=== PATIENT | female | born 1975 | race Caucasian/White ===

== ENCOUNTER → 2017-05-04 | Emergency (ER) | payer OTHER ==
[~2017-05-04] VITALS: Ht 170.2 cm; Wt 100.7 kg
[~2017-05-04] MED LIST: ALBUTEROL S5 MG/1 ML IH; BENADRYL25 MG PO; GILTUSS TR TAB1 EACH PO; MEDROL4 MG PO; MEDROLPACK PO; ORPH100T PO; PEPCID40 MG PO
== END | disposition home or self-care (01) ==
LOC: ER 08:58
DX: B34.9 Viral infection, unspecified (principal); J45.998 Other asthma

== ENCOUNTER 2018-04-14 12:15 | Emergency (ER) | payer OTHER ==
[~2018-04-14] VITALS: Ht 170.2 cm; Wt 102.1 kg
== END 2018-04-14 13:46 | disposition home or self-care (01) ==
LOC: ER 12:15
DX: M25.521 Pain in right elbow (principal)

== ENCOUNTER 2019-09-10 11:26 | Outpatient (CLI) | payer OTHER | END 2019-09-10 11:28 | disposition home or self-care (01) | LOC: SONOGRAMA 11:26 | PROVIDERS: ATTEND Pathology Anatomic Pathology & Clinical Pathology | DX: E04.1 Nontoxic single thyroid nodule (principal) ==